=== PATIENT | male | born 1945 | race American Indian/Alaskan Native ===

== ENCOUNTER 2016-09-25 12:02 | Outpatient (CLI) | payer MEDICARE ==
--- NOTE | 2016-09-25 13:50 | XRay Report ---
PA and lateral chest: Comparison is made to the prior study of March 26, 2012. The aorta is tortuous. The heart is normal in size. There is no vascular congestion. There is linear scarring or atelectasis noted in one of the 2 lower lobes as seen in the lateral view but not seen in the frontal projection. This finding was previously noted. There is a left subclavian venous stent present. Impressions: The findings are unchanged except for the basilar scarring or atelectasis.
== END 2016-09-25 12:03 | disposition home or self-care (01) ==
LOC: XRAY 12:02
DX: J98.11 Atelectasis (principal); R09.89 Other specified symptoms and signs involving the circulatory and respiratory systems; Z95.828 Presence of other vascular implants and grafts
CPT/HCPCS: 71020

== ENCOUNTER 2016-10-09 05:48 | Day surgery (SDC) | payer MEDICARE ==
[2016-10-09] MEDS ORDERED: PEPCID PO NR (06:00)
[2016-10-09] MEDS ORDERED: ANCEF/STERILE WATER 2 GM/20 ML 20 ML IV NR (06:00)
[2016-10-09] MEDS ORDERED: NACL 0.9% 1000 ML 1,000 ML IV SCH (06:00)
[2016-10-09] MEDS ORDERED: NACL BACTERIOSTATIC INFILTRATI ONE (06:10)
--- NOTE | 2016-10-09 07:10 | Anesthesia Consultation ---
Anesthesia Consult and Med Hx Date of service: 10/09/16 - Airway Anesthetic Teeth Evaluation: Poor ROM Head & Neck: Adequate Mental/Hyoid Distance: Adequate Mallampati Class: Class II Intubation Access Assessment: Probably Good - Pulmonary Exam CTA: Yes - Cardiac Exam Cardiac Exam: RRR - Pre-Operative Health Status ASA Pre-Surgery Classification: ASA4 Proposed Anesthetic Plan: General - Pulmonary Hx Smoking: Yes Hx Sleep Apnea: Yes - Cardiovascular System Hx Hypertension: Yes - Endocrine Hx End Stage Renal Disease: Yes Hx Hypothyroidism: Yes - Other Systems Hx Cancer: Yes
[2016-10-09] MEDS ORDERED: PERCOCET 5/325 PO PRN (07:11)
[2016-10-09] MEDS ORDERED: DILAUDID IV PRN (07:11)
--- NOTE | 2016-10-09 07:11 | Anesthesia Day of Surgery ---
Anesthesia Day of Surgery - Day of Surgery Patient Examined: Yes Patient H&P Reviewed: Yes Patient is NPO: Yes
[2016-10-09] MEDS ORDERED: DIPRIVAN 10 MG/ML IV ONE (07:28)
[2016-10-09] MEDS ORDERED: SUBLIMAZE ONE (07:28)
[2016-10-09] MEDS ORDERED: XYLOCAINE MPF 2% ONE (07:32)
--- NOTE | 2016-10-09 07:48 | Anesthesia Day of Surgery ---
Anesthesia Day of Surgery - Day of Surgery Patient Examined: Yes Patient H&P Reviewed: Yes Patient is NPO: Yes
[2016-10-09] MEDS ORDERED: NACL 0.9% 500 ML ONE (08:00)
[2016-10-09] MEDS ORDERED: PROTAMINE SULFATE ONE (08:00)
[2016-10-09] MEDS ORDERED: MARCAINE 0.25% INFILTRATI ONE (08:00)
[2016-10-09] MEDS ORDERED: NACL P/F VIAL (10 ML) ONE (08:00)
--- NOTE | 2016-10-09 08:08 | Anesthesia Consultation ---
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 - Pulmonary Hx Smoking: Yes (1/2PPD x40 yr) Hx Sleep Apnea: Yes (does not use CPAP) - Cardiovascular System Hx Hypertension: Yes (11years; CHF) Hx Cardia Arrhythmia: No (h/o irregular HR - RRR 10/09/16) - Central Nervous System Hx Psychiatric Problems: No - Gastrointestinal Hx Gastroesophageal Reflux Disease: Yes (mild) - Endocrine Hx Renal Disease: Yes (left nephrectomy 09/2014) Hx End Stage Renal Disease: Yes (dialysis MWF, anuria) Hx Non-Insulin Dependent Diabetes: Yes (diet controlled) Hx Hypothyroidism: Yes - Hematic Hx Anemia: No Hx Sickle Cell Disease: No - Other Systems Hx Alcohol Use: No Hx Substance Use: No Hx Cancer: Yes (papillary squamous cell larynx 15 yr ago; prostate ca w/ seed implant) Hx Obesity: No
[2016-10-09] MEDS ORDERED: NACL 0.9% 100 ML ONE (08:46)
[2016-10-09] MEDS ORDERED: PROAIR IH ONE (08:46)
[2016-10-09] MEDS ORDERED: NEO SYNEPHRINE ONE (08:46)
[2016-10-09] MEDS ORDERED: MARCAINE 0.5% INFILTRATI ONE ×2 (08:54)
[2016-10-09] MEDS ORDERED: DECADRON ONE (08:56)
[2016-10-09] MEDS ORDERED: NACL 0.9% 1000 ML IR ONE (08:56)
[2016-10-09] MEDS ORDERED: ZOFRAN ONE (08:56)
[2016-10-09] MEDS ORDERED: HEPARIN 10,000 UNITS/10 ML 2,000 UNIT in NACL 0.9% 500 ML 500 ML IR ONE (08:57)
[2016-10-09] MEDS ORDERED: RIFADIN 600 MG in NACL 0.9% 50 ML IR ONE (08:58)
[2016-10-09] MEDS ORDERED: ROBINUL ONE (09:01)
--- NOTE | 2016-10-09 09:50 | Operative Report ---
Operative Report Operative Report: Date of Procedure: 10/09/2016 Pre-operative Diagnosis: Complications of Dialysis Access Post-operative Diagnosis: Same Procedure(s): 1. Revision of Left Eliana Fistula with 4-7 Accuseal Interposition Graft Surgeon: Vince Paulino M.D. Talent Management Specialist: Nakia Anesthesia: Gen. endotracheal anesthesia EBL: Minimal Counts: Correct Complications: None Condition: Stable Findings: Successful revision of left arm fistula with excellent thrill in the graft after completion of the procedure. Specimen: Left arm pseudoaneurysm sent pathology. Left arm skin discarded. Indication: The patient is a 71-year-old male with history of end-stage renal disease who is on dialysis through a left Eliana fistula. He had large pseudoaneurysms with ulceration of the overlying skin. He is in need of revision of the fistula. To avoid placing a central venous catheter for dialysis the decision was made to use an Accuseal graft that could be accessed within 24 hours. He was given the risks, benefits, and alternative procedures and consented to procedure. Description of Procedure: The patient was brought to the operating room and laid in supine position. After general endotracheal anesthesia was achieved with left arm is prepped and draped in normal sterile fashion. A longitudinal incision was created in the left arm extending proximal from the normal portion of fistula, over the areas of pseudoaneurysm, and distally to the normal portion of the vessel. Sharp dissection was used to dissect around the normal venous outflow of the fistula as well as the proximal arterial inflow the fistula never controlled vessels. I then used sharp dissection to dissect the pseudoaneurysm away from the overlying tissue. The pseudoaneurysm had been dissected circumferentially the outflow and inflow were controlled with the DeBakey clamps and the pseudoaneurysm was resected. A Paula-Wick tunneler was then used to tunnel lateral to the incision and the 4-7 Accuseal graft was pulled through the tunnel. The 7 mm portion was then beveled and sewed an end-to-end fashion to the arterial level using 2 6-0 Prolene in a running fashion. After completing the anastomosis the clamp was released to check for hemostasis at the anastomosis as well as adequate inflow. The graft was then reclamped and pulled through the tunnel to ensure there was no redundant portion. I then cut the graft to length ensuring that the 7 mm portion will be used for the venous anastomoses well. I beveled the graft and then created end-to-end anastomosis using 2 6-0 Prolene in running fashion. Prior to completing the anastomosis I flashed the venous outflow as well as the arterial inflow in the reclamped the vessels. I completed the anastomosis and removed all clamps allowing flow through the graft which had an excellent thrill. Hemostasis within the wound was achieved with a combination of quick clot and direct pressure. Once hemostasis was achieved I resected the redundant portion of skin that were previously overlying the pseudoaneurysm. I then anesthetized with Marcaine and closed in 2 layers using a 3-0 Vicryl running fashion the deep dermal layer and a 4 Monocryl in a running fashion subcuticular layer. The wound was then dressed with Dermabond. The patient tolerated the procedure well. All sponge, needle, and instrument counts were correct. The patient was taken to the recovery area in stable condition.
--- NOTE | 2016-10-09 09:58 | Short Stay Summary ---
Short Stay Documentation Date of service: 10/09/16 Narrative H&P: See H&P - History H&P: obtained from office - Allergies and Medications Current Medications: Allergies latex Allergy (Verified 09/29/16 14:58) BLISTERS Home Medications Medication Instructions Recorded Confirmed Last Taken Type Cinacalcet HCl [Sensipar] 60 mg PO DAILY 04/03/14 09/29/16 10/08/16 History Gabapentin 200 mg PO HS 04/03/14 09/29/16 10/08/16 History Hydralazine HCl [hydrALAZINE] 100 mg PO TID 04/03/14 09/29/16 10/09/16 05:00 History Levothyroxine [Synthroid] 50 mcg PO DAILY 04/03/14 09/29/16 10/09/16 05:00 History Pantoprazole [Protonix TAB] 40 mg PO DAILY 04/03/14 09/29/16 10/08/16 History Cefprozil (Nf) 250 mg PO QDAY 09/29/16 09/29/16 10/08/16 History Folic Acid/Vit Bcomp,C [Folbee 5 mg PO QDAY 09/29/16 09/29/16 10/08/16 History Plus Tablet] Clonidine HCl [Catapres] 0.3 mg PO TID 10/09/16 10/09/16 10/08/16 History Cyproheptadine [Periactin] 4 mg PO BID 10/09/16 10/09/16 10/08/16 History Sevelamer Carbonate [Renvela] 800 mg PO TIDWM 10/09/16 10/09/16 10/08/16 History Verapamil ER [Calan Sr] 180 mg PO DAILY 10/09/16 10/09/16 10/08/16 History Active Medications Famotidine (Pepcid) 20 mg PO PREOP NR Stop: 10/09/16 23:59 Last Admin: 10/09/16 06:25 Dose: 20 mg Hydromorphone HCl (Dilaudid) 0.5 mg IV Q10MIN PRN PRN Reason: Pain , Severe (7-10) Stop: 10/09/16 16:00 Cefazolin Sodium (Ancef/Sterile Water 2 Gm/20 Ml) 20 mls @ 80 mls/hr IV PREOP NR PRN Reason: Protocol Stop: 10/09/16 23:59 Sodium Chloride (Nacl 0.9% 1000 Ml) 1,000 mls @ 42 mls/hr IV DIRECT VEENA Stop: 10/09/16 23:59 Last Admin: 10/09/16 06:30 Dose: 42 mls/hr Oxycodone/Acetaminophen (Percocet 5/325) 1 tab PO ONCE PRN PRN Reason: Pain, Moderate (4-6) Stop: 10/09/16 16:00 - Brief post op/procedure progress note Date of procedure: 10/09/16 Pre-op diagnosis: complications of dialysis access Post-op diagnosis: same Procedure: 1. Revision of Left Eliana Fistula with 4-7 Accuseal Interposition Graft Anesthesia: JORDAN Surgeon: FABIAN CAMERON Estimated blood loss: 50-100ml Pathology: list (left arm pseudoaneurysm) Specimen disposition: to lab Condition: stable - Disposition Condition at discharge: Good Disposition: DISCHARGED TO HOME OR SELFCARE Short Stay Discharge Plan Activity: other (no heavy lifting with left arm. Okay to access the graft tomorrow for dialysis) Wound: open to air, keep clean and dry, other (okay to wash with soap and water but do not soak in water) Follow up with: FABIAN CAMERON MD [Staff Physician] - 14 Days Prescriptions: HYDROcodone/APAP 7.5-325 [[place] 7.5/325] 1 each PO Q6HR PRN #60 tablet PRN Reason: Pain
--- NOTE | 2016-10-09 11:00 | Post Anesthesia Evaluation ---
- Post Anesthesia Evaluation Patient Participated: Yes Airway Patent: Yes Stable Respiratory Function: Yes Temp > 96.8F: Yes Pain Manageable: Yes Adequeate Hydration: Yes Anesthesia Complications: No Block Receding Appropriately: Not Applicable
[2016-10-09 11:03] VITALS: BP 145/86
== END 2016-10-09 11:40 | disposition home or self-care (01) ==
LOC: OR 05:48
PROVIDERS: ATTEND Surgery Vascular Surgery
DX: T82.9XXA Unspecified complication of cardiac and vascular prosthetic device, implant and graft, initial encounter (principal); Y83.9 Surgical procedure, unspecified as the cause of abnormal reaction of the patient, or of later complication, without mention of misadventure at the time of the procedure
CPT/HCPCS: 36415; 36832; 82962; 84132; 88304; C1768; J0690; J1100; J1644; J2370; J2405; J2704; J3010; J3490; J7030; J7040

== ENCOUNTER 2018-06-14 08:22 | Day surgery (SDC) | payer MEDICARE ==
[~2018-06-14 08:22] MED LIST: ANCEF/STERILE WATER 2 GM/20 ML 2 GM/20 ML SYRINGE IV NR; NACL 0.9% 1000 ML 1,000 ML IV SCH
--- NOTE | 2018-06-14 09:43 | Short Stay Summary ---
Short Stay Documentation Date of service: 06/14/18 Narrative H&P: The patient is a 72 year old male with a history of end stage renal disease who is currently on hemodialysis through a right femoral permacath. He had a previous left arm Eliana fistula that is now thrombosed and he is in need of permanent access. He has no complaints at this time. - History Past Medical History: diabetes, ESRD, heart failure, hypertension, other (Renal Cell Cancer, Prostate Cancer) Past Surgical History: Other (Left Nepherectomy, Brachy Therapy) Social history: no significant social history - Allergies and Medications Current Medications: Allergies latex Allergy (Verified 06/08/18 16:14) BLISTERS Home Medications Medication Instructions Recorded Confirmed Last Taken Type Gabapentin 1 - 2 cap PO HS 04/03/14 03/23/18 03/21/18 22:00 History 200mg Hydralazine HCl [hydrALAZINE] 100 mg PO TID 04/03/14 03/23/18 03/21/18 22:00 History 100mg Levothyroxine [Synthroid] 50 mcg PO DAILY 04/03/14 03/23/18 03/21/18 06:00 History 50mcg Pantoprazole [Protonix TAB] 40 mg PO DAILY 04/03/14 03/23/18 03/21/18 09:00 History 40mg Folic Acid/Vit B Complex and C 5 mg PO QDAY 09/29/16 03/23/18 03/21/18 09:00 History [Folbee Plus Tablet] 5mg Clonidine HCl [Catapres] 0.3 mg PO TID 10/09/16 03/23/18 03/21/18 22:00 History 0.3mg Cyproheptadine [Periactin] 4 mg PO BID 10/09/16 03/23/18 03/21/18 22:00 History 4mg Sevelamer Carbonate [Renvela] 4,000 mg PO TIDWM 10/09/16 03/23/18 03/21/18 History 4000mg Baclofen [Lioresal] 10 mg PO BID PRN 02/01/18 03/23/18 03/21/18 22:00 History 10mg Cinacalcet HCl [Sensipar] 90 mg PO DAILY 02/01/18 03/23/18 03/21/18 09:00 History HYDROcodone/APAP 5-325 [[place] 1 each PO Q8H PRN 02/01/18 03/23/18 03/21/18 22: 00 History 5-325 mg TAB] 1 tab Verapamil HCl [Verapamil ER] 180 mg PO QDAY 02/01/18 03/23/18 03/21/18 09:00 History 180mg raNITIdine HCl [Zantac 300 MG TAB] 300 mg PO QPM 02/01/18 03/23/18 03/21/18 22: 00 History tiZANidine [Zanaflex] 4 mg PO TID PRN 02/01/18 03/23/18 Unknown History Active Medications Cefazolin Sodium (Ancef/Sterile Water 2 Gm/20 Ml) 2 gm in 20 mls @ 80 mls/hr IV PREOP NR; Protocol Stop: 06/14/18 23:59 Sodium Chloride (Nacl 0.9% 1000 Ml) 1,000 mls @ 42 mls/hr IV DIRECT VEENA - Physical exam General appearance: no acute distress Lungs: Normal air movement Breasts: deferred Heart: Regular rate Gastrointestinal: normal Female Genitourinary: deferred Rectal Exam: deferred Extremities: abnormal (Thrombosed left eliana fistula, palpable left brachial arterty) - Brief post op/procedure progress note Date of procedure: 06/14/18 Pre-op diagnosis: Complications of Dialysis Access Post-op diagnosis: same Procedure: Creation of Left Brachial Artery to Axillary Vein Arteriovenous Graft with 7 mm Bovine Graft Anesthesia: JORDAN Surgeon: FABIAN CAMERON Estimated blood loss: minimal Pathology: none Condition: stable - Disposition Condition at discharge: Good Disposition: DC-01 TO HOME OR SELFCARE Short Stay Discharge Plan Activity: other (no heavy lifting with left arm) Wound: open to air, keep clean and dry, other (okay to wash the wound with soap and water but do not soak in water) Follow up with: FABIAN CAMERON MD [Staff Physician] - 14 Days Prescriptions: HYDROcodone/APAP 7.5-325 [[place] 7.5/325] 1 each PO Q6HR PRN #40 tablet PRN Reason: Pain
[2018-06-14] MEDS ORDERED: HEPARIN 10,000 UNITS/10 ML IR ONE (10:13)
[2018-06-14] MEDS ORDERED: MARCAINE 0.5% INFILTRATI ONE ×2 (10:13→10:47)
[2018-06-14] MEDS ORDERED: RIFADIN IV ONE (10:13)
[2018-06-14] MEDS ORDERED: NACL 0.9% 500 ML IRRIGATION ONE (10:13)
[2018-06-14] MEDS ORDERED: NACL 0.9% IR ONE (10:13)
[2018-06-14] MEDS ORDERED: SUBLIMAZE IV PRN (10:49)
--- NOTE | 2018-06-14 10:53 | Anesthesia Consultation ---
Anesthesia Consult and Med Hx Date of service: 06/14/18 - Airway Anesthetic Teeth Evaluation: Poor ROM Head & Neck: Adequate Mental/Hyoid Distance: Adequate Mallampati Class: Class III Intubation Access Assessment: Possibly Difficult (hx radiation to neck 15yrs ago ; denies hx difficult intubation since. Easy LMA 5 03/2018.) - Pulmonary Exam CTA: Yes - Cardiac Exam Cardiac Exam: RRR - Pre-Operative Health Status ASA Pre-Surgery Classification: ASA4 Proposed Anesthetic Plan: General - Pulmonary Hx Smoking: Yes (1/2PPD x41 yr) Hx Asthma: No Hx Respiratory Symptoms: No SOB: No COPD: No Hx Sleep Apnea: Yes (does not use CPAP) - Cardiovascular System Hx Hypertension: Yes Hx Heart Attack/AMI: No Hx Cardia Arrhythmia: No (HR irregular HR in 09/2016 now resovled) - Central Nervous System Hx Seizures: No CVA: No Hx Psychiatric Problems: Yes (anxiety) - Gastrointestinal Hx Gastroesophageal Reflux Disease: Yes (mild; asymptomatic today) - Endocrine Hx Renal Disease: Yes (left nephrectomy 09/2014) Hx End Stage Renal Disease: Yes (MWF HD; last HD 06/11) Hx Liver Disease: No Hx Non-Insulin Dependent Diabetes: Yes (diet controlled) Hx Hypothyroidism: Yes - Hematic Hx Anemia: Yes - Other Systems Hx Cancer: Yes (laryngeal, renal cell, prostate) Hx Obesity: No
--- NOTE | 2018-06-14 10:54 | Anesthesia Day of Surgery ---
Anesthesia Day of Surgery - Day of Surgery Patient Examined: Yes Patient H&P Reviewed: Yes Patient is NPO: Yes
--- NOTE | 2018-06-14 12:07 | Operative Report ---
Operative Report Operative Report: Date of procedure: 06/14/2018 Pre-operative diagnosis: Complications of Dialysis Access Post-operative diagnosis: Same Procedure(s): 1. Creation of Left Brachial Artery to Axillary Vein to Arteriovenous Graft with 7 mm Bovine Graft Surgeon: Vince Paulino MD Dial Mounter: None Anesthesia: General Endotracheal Anesthesia EBL: Minimal Counts: Correct Complications: None Condition: Stable Findings: Successful Creation of Left Arm AV Graft Specimen: None Indication: The patient is a 72-year-old male with a history of end-stage renal disease with a previous left arm Eliana AV fistula that thrombosed. He is currently on hemodialysis through a right groin permacath and is in need of long-term dialysis access. His basilic vein was the outflow for seminal fistula however there is thrombus within the vein so it is no longer usable. He needs creation of a arteriovenous graft. He was given the risk, benefits, and alternative procedures and has consented to the procedure. Description of Procedure: The patient was brought to the operating room and laid in supine position after general endotracheal anesthesia was achieved the left arm was prepped and draped in normal sterile fashion. A longitudinal incision was made on the medial aspect of the arm just proximal to the antecubital crease and carried down to the brachial artery using sharp dissection. The brachial artery was dissected out circumferentially both proximally and distally and controlled with vessel loops. A second incision was created in longitudinal fashion on the medial aspect of the arm just distal to the axillary crease and carried down to the axillary vein using sharp dissection. Axillary vein was dissected out circumferentially and controlled with a vessel loop. I then used a Paula- Wick tunneler to tunnel from the brachial artery incision to the axillary vein incision and then put an 7 mm bovine through the tunnel. I infused with heparinized saline to ensure that it was not twisted or kinked. I put the brachial artery vessel loops on tension controlling the flow and then created an arteriotomy using an 11 blade and Mckeon scissors. I beveled the graft and created an end-to-side anastomosis using 6-0 Prolene running fashion. I clamped the graft just proximal to the anastomosis and then released the vessel loops restoring flow in the brachial artery. I placed quick clot in incision to achieve hemostasis. I cut the proximal end of the graft to the appropriate length and beveled the graft in preparation for a venous anastomosis. I controlled the axillary vein a Satinsky clamp and created a venotomy using an 11 blade and Mckeon scissors. I created an end to side anastomosis using a 6-0 Prolene in running fashion. Prior to completing the anastomosis I flushed the graft to ensure there was no thrombus and then completed the anastamosis. I released all clamps allowing flow into the AV graft which had an excellent thrill. I packed the wound with quick clot to achieve hemostasis. I anesthetized both wounds with Marcaine and then closed both wounds in 2 layers using 3-0 Vicryl in running fashion in the deep dermal layer and 4-0 Monocryl in running fashion the subcuticular layer. I dressed both wounds with Surgicel. The patient tolerated the procedure well all sponge needle and instrument counts were correct the patient was taken to recovery in stable condition.
[2018-06-14] MEDS ORDERED: SUBLIMAZE ONE (12:19)
[2018-06-14] MEDS ORDERED: XYLOCAINE MPF 2% ONE (12:19)
[2018-06-14] MEDS ORDERED: DIPRIVAN 10 MG/ML IV ONE (12:20)
[2018-06-14] MEDS ORDERED: NORCO 7.5/325 PO PRN (12:39)
[2018-06-14 12:41] VITALS: BP 106/54
[2018-06-14] MEDS ORDERED: NORCO ONE (12:43)
[2018-06-14] MEDS ORDERED: NORCO PO ONE (13:00)
--- NOTE | 2018-06-14 13:45 | Post Anesthesia Evaluation ---
- Post Anesthesia Evaluation Patient Participated: Yes Airway Patent: Yes Stable Respiratory Function: Yes Nausea/Vomiting: No Temp > 96.8F: Yes Pain Manageable: Yes Adequeate Hydration: Yes Anesthesia Complications: No
== END 2018-06-14 13:05 | disposition home or self-care (01) ==
LOC: OR 08:22
PROVIDERS: ATTEND Surgery Vascular Surgery
DX: T82.868A Thrombosis due to vascular prosthetic devices, implants and grafts, initial encounter (principal); E11.22 Type 2 diabetes mellitus with diabetic chronic kidney disease; I13.2 Hypertensive heart and chronic kidney disease with heart failure and with stage 5 chronic kidney disease, or end stage renal disease; I50.9 Heart failure, unspecified; N18.6 End stage renal disease; G47.30 Sleep apnea, unspecified; M10.9 Gout, unspecified; F41.9 Anxiety disorder, unspecified; E03.9 Hypothyroidism, unspecified; J44.9 Chronic obstructive pulmonary disease, unspecified; D64.9 Anemia, unspecified; K21.9 Gastro-esophageal reflux disease without esophagitis; F17.200 Nicotine dependence, unspecified, uncomplicated; Z79.899 Other long term (current) drug therapy; Z91.040 Latex allergy status; Z90.5 Acquired absence of kidney; Z85.46 Personal history of malignant neoplasm of prostate; Z85.53 Personal history of malignant neoplasm of renal pelvis; Z85.818 Personal history of malignant neoplasm of other sites of lip, oral cavity, and pharynx; Z98.890 Other specified postprocedural states; Y83.2 Surgical operation with anastomosis, bypass or graft as the cause of abnormal reaction of the patient, or of later complication, without mention of misadventure at the time of the procedure
CPT/HCPCS: 36830; 82803; 82962; C1768; J0690; J1644; J2704; J3010; J3490; J7030; J7040

== ENCOUNTER 2021-09-16 09:09 | Emergency (ER) | payer MEDICARE ==
[2021-09-16] MEDS ORDERED: HEPARIN 10,000 UNITS/10 ML VIAL IV PRN (09:22)
[2021-09-16] MEDS ORDERED: NORepinephrine/NS 8 MG-250 ML 8 MG/250 ML INFUS..BTL IV SCH (10:00)
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
== END 2021-09-16 14:00 ==
LOC: ED 09:09
DX: I46.9 Cardiac arrest, cause unspecified (principal); I13.2 Hypertensive heart and chronic kidney disease with heart failure and with stage 5 chronic kidney disease, or end stage renal disease; E11.22 Type 2 diabetes mellitus with diabetic chronic kidney disease; N18.6 End stage renal disease; I50.9 Heart failure, unspecified; Z99.2 Dependence on renal dialysis; F17.200 Nicotine dependence, unspecified, uncomplicated; Z91.040 Latex allergy status; Z79.899 Other long term (current) drug therapy
CPT/HCPCS: 31500; 92950; 99285; J2354; J1644